=== PATIENT | male | born 1990 | race Caucasian/White ===

== ENCOUNTER 2021-01-15 22:50 | Emergency (ER) | payer OTHER ==
[~2021-01-15] VITALS: Ht 177.8 cm; Wt 77.1 kg
[2021-01-16] MEDS ORDERED: INTESTINEX680 M1 PO (00:41)
[2021-01-16] MEDS ORDERED: AMOX1TAB5 PO (00:41)
[2021-01-16] MEDS ORDERED: ACETAMINOPHEN650 M2 (01:10)
== END 2021-01-16 00:50 | disposition home or self-care (01) ==
LOC: ER 22:50
DX: S61.022A Laceration with foreign body of left thumb without damage to nail, initial encounter (principal); W26.8XXA Contact with other sharp object(s), not elsewhere classified, initial encounter; Y93.89 Activity, other specified; Y92.59 Other trade areas as the place of occurrence of the external cause; Y99.8 Other external cause status